=== PATIENT | female | born 1950 | race African-American/Black ===

== ENCOUNTER 2017-07-27 08:33 | Outpatient (CLI) | payer MEDICARE, BC ==
--- NOTE | 2017-07-27 12:00 | CT ---
CT OF THE CHEST AND ABDOMEN WITH IV CONTRAST: Indication: History of leukemia. Comparison: CT chest, abdomen, and pelvis dated 11-30-13. FINDINGS: CHEST: The lungs are clear. No pleural effusion or pneumothorax is evident. No pathologically enlarged lymp h nodes are evident. There are mild vascular calcifications involving the aortic arch. Mildly promin ent lymph nodes within the axillary region are stable, none of which are pathologically enlarged bas ed on size criteria. ABDOMEN: There is a tiny hiatal hernia. There is mild fatty infiltration of the liver. The pancreas, adrenal glands, and kidneys appear within normal limits. 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 The subcentimeter shotty appearing lymph nodes within the aortocaval region are stable. None of whic h are pathologically enlarged by size criteria. There are scattered phleboliths within the gonadal v ein. There is a mild amount of retained stool within the visualized colon. There is a fat containing umbilical hernia. There is scattered degenerative and osteoarthritic change. No definite acute osse ous abnormality is evident. IMPRESSION: 1. No overt changes of recurrent disease. The examination does not appear appreciably changed from t he comparison dated 11-30-13. 2. Nodes within the right axillary regions and aortocaval regions in the abdomen are stable. No path ologically enlarged lymph nodes are evident. 3. Mild fatty liver. 4. Hiatal hernia. 5. Small amount of retained stool within the colon. POS: [facility]
--- NOTE | 2017-07-27 12:05 | CT ---
CT OF SOFT TISSUES OF THE NECK WITH IV CONTRAST: INDICATION: History of leukemia. COMPARISON: CT of the soft tissue of the neck, chest, abdomen, and pelvis dated 07/08/[address] of the soft tis sues of the neck dated 05/28/08 and 11/16/08. FINDINGS: Visualized intracranial contents are unremarkable. The sr vice president space and parapharyngeal space ap pears within normal limits. The parotid and submandibular glands are normal-appearing. The visuali zed aerodigestive tract is normal-appearing. The thyroid gland is normal-appearing. There are multiple subcentimeter lymph nodes seen within the level II and level III positions. A fe w shotty-appearing nodes are seen within level VII bilaterally. None are pathologically enlarged. These are stable to the prior exam. Lung apices are clear. There is scattered degenerative and osteoarthritic change. The visualized paranasal sinuses and mas toid air cells are clear. IMPRESSION: 1. No evidence of recurrent disease. 2. Subcentimeter shotty-appearing lymph nodes seen within the neck bilaterally as well as within th e upper thorax are stable to a comparison in 2010. POS: [facility]
[2017-07-27] MEDS ORDERED: Iopamidol 370 76% 100 ML VIAL ONE (16:35)
== END 2017-07-27 08:34 | disposition home or self-care (01) ==
LOC: CT 08:33
PROVIDERS: ATTEND Internal Medicine Hematology & Oncology
DX: C91.11 Chronic lymphocytic leukemia of B-cell type in remission (principal); K76.0 Fatty (change of) liver, not elsewhere classified; K44.9 Diaphragmatic hernia without obstruction or gangrene
CPT/HCPCS: 70492; 71260; 74160

== ENCOUNTER 2017-12-27 10:31 | Outpatient (CLI) | payer MEDICARE, BC ==
--- NOTE | 2017-12-27 13:56 | ULT ---
BILATERAL LOWER EXTREMITY VENOUS ULTRASOUND WITH DOPPLER: Date: 12/27/17 HISTORY: Right leg pain for a couple of months. COMPARISON: None. TECHNIQUE: Utilizing multihertz transducer, sonographic imaging of the left and right lower extremity venous sys tem performed. FINDINGS: Bilaterally, there is compressibility, presence of flow, and augmentation in the common femoral, femo ral vein, and popliteal vein. There is flow in bilateral greater saphenous veins, profunda veins, and posterior tibial veins. IMPRESSION: No evidence of thrombus in the left or right lower extremity deep venous system. POS: [facility]
== END 2017-12-27 10:32 | disposition home or self-care (01) ==
LOC: ULT 10:31
PROVIDERS: ATTEND Internal Medicine
DX: M79.604 Pain in right leg (principal); M79.603 Pain in arm, unspecified
CPT/HCPCS: 93970

== ENCOUNTER 2018-01-04 16:20 | Outpatient (CLI) | payer MEDICARE, BC | END 2018-01-04 16:21 | disposition home or self-care (01) | LOC: BICRAD 16:20 | PROVIDERS: ATTEND Nurse Practitioner Family | DX: J06.9 Acute upper respiratory infection, unspecified (principal); J45.21 Mild intermittent asthma with (acute) exacerbation; C95.90 Leukemia, unspecified not having achieved remission | CPT/HCPCS: 71046 ==

== ENCOUNTER 2018-03-03 12:01 | Outpatient (CLI) | payer MEDICARE, BC ==
--- NOTE | 2018-03-03 13:12 | ULT ---
DOPPLER VENOUS ULTRASOUND OF THE RIGHT LOWER EXTREMITY: INDICATION: Right lower extremity pain. TECHNIQUE: Corado scale, color Doppler, and vascular duplex with spectral analysis was performed of the deep venou s structures of both lower extremities. The common femoral vein, superficial femoral vein, popliteal vein, posterior tibial vein, proximal greater saphenous, and proximal profunda veins were assessed bi laterally. FINDINGS: Normal compression, flow, and augmentation is seen within the deep venous structures of right lower e xtremity. IMPRESSION: No evidence of deep vein thrombosis within the right lower extremity. POS: [facility]
--- NOTE | 2018-03-03 13:20 | RAD ---
LUMBAR SPINE THREE VIEWS: INDICATIONS: History of spinal arthropathy. FINDINGS: There are marginal osteophytes affecting the lumbar spine at all lumbar intervertebral levels. The v isualized SI joints demonstrate mild degenerative change. No acute fracture or subluxation is eviden t. IMPRESSION: 1. Mild multilevel spondylosis of the lumbar spine. 2. Mild degenerative changes of both sacroiliac joints. POS: [facility]
== END 2018-03-03 12:02 | disposition home or self-care (01) ==
LOC: ULT 12:01
PROVIDERS: ATTEND Internal Medicine Rheumatology
DX: M79.89 Other specified soft tissue disorders (principal); M46.97 Unspecified inflammatory spondylopathy, lumbosacral region; M47.896 Other spondylosis, lumbar region; M53.3 Sacrococcygeal disorders, not elsewhere classified
CPT/HCPCS: 72100

== ENCOUNTER 2019-09-06 08:13 | Outpatient (CLI) | payer MEDICARE, BC ==
--- NOTE | 2019-09-06 09:17 | CT ---
CT OF THE CHEST, ABDOMEN AND PELVIS WITH IV CONTRAST INDICATION: Chronic lymphocytic leukemia COMPARISON: CT of the chest and abdomen dated July 27, 2017 FINDINGS: CHEST: Lungs: The lungs are clear. Pleural space: No effusion. Mediastinum: No pathologically enlarged lymph nodes are seen within the mediastinum. There are mild v ascular calcifications involving the thoracic aorta. Axilla: No pathologically enlarged lymph nodes. ABDOMEN: Lung bases: There is a small hiatal hernia Liver: Mild fatty infiltration Gallbladder: Normal appearing. Pancreas: Normal. Adrenal glands: Normal. Spleen: Normal. Kidneys and ureters: There is a stable small subcentimeter cysts seen within the left mid kidney. No hydronephrosis is demonstrated. Vasculature: There are mild vascular calcifications seen involving the visualized vasculature. Lymph nodes:No pathologically enlarged lymph nodes are seen within the retroperitoneum. No enlarged m esenteric lymph nodes are present. Free fluid in abdomen:No free fluid is evident. PELVIS: Small and large bowel: Normal Appendix:Surgically absent Bladder: Normal. Rectal and perirectal soft tissues:Normal. Reproductive structures: Surgically absent Free fluid in pelvis: No free fluid is evident. Lymphadenopathy pelvis: No lymphadenopathy is evident. Osseous structures: No acute osseous abnormality. No destructive osteolytic or osteoblastic lesion i s identified. There is scattered degenerative and osteoarthritic changes. Soft tissues:Normal. IMPRESSION: 1. No evidence to suggest recurrent disease. 2. Stable small hiatal hernia. 3. Stable mild fatty infiltration of the liver.
[2019-09-06] MEDS ORDERED: Iopamidol 370 76% 100 ML VIAL ONE (13:47)
== END 2019-09-06 08:14 | disposition home or self-care (01) ==
LOC: CT 08:13
PROVIDERS: ATTEND Internal Medicine Hematology & Oncology
DX: C91.11 Chronic lymphocytic leukemia of B-cell type in remission (principal); K44.9 Diaphragmatic hernia without obstruction or gangrene; K76.0 Fatty (change of) liver, not elsewhere classified
CPT/HCPCS: 71260; 74177; 82565; Q9967

== ENCOUNTER 2019-10-16 09:38 | Emergency (ER) | payer MEDICARE, BC ==
--- NOTE | 2019-10-16 10:40 | RAD ---
Exam: Chest one view HISTORY:Fever, leukemia Comparison: 01/17/2017 FINDINGS: Lungs: No masses or consolidation. Cardiac silhouette: Normal size Pulmonary vessels: Normal Pleural Spaces: Clear Pneumothorax: None Osseous abnormalities: None of acuity. IMPRESSION: No focal consolidation.
[2019-10-16 11:09] LABS: Bacteria/HPF None Seen HPF (None Seen); Bilirubin Negative (Negative); Blood, Urine Trace (Negative); Clarity Clear (Clear); Glucose, Urine (Dipstick) Normal (Negative); Leukocyte Negative Leu/uL (Negative); Nitrite Negative (Negative); Protein, Urine (Dipstick) 20 mg/dL (Neg-Trace); RBC/HPF 0-3 HPF (0-3); Squamous Epithelial 0-3 HPF (0-3); Urobilinogen Normal mg/dL (Less than 2); WBC/HPF 0-3 HPF (0-3)
[2019-10-16 11:17] LABS: ALT (SGPT) 18 U/L (8-55); AST (SGOT) 23 U/L (5-34); Albumin 4.3 g/dL (3.4-4.8); Alkaline Phosphatase 94 U/L (40-110); Anion Gap 14 mmol/L (10-20); BUN (Urea Nitrogen) 10 mg/dL (9.8-20.1); Bilirubin, Total 0.3 mg/dL (0.2-1.2); Calc. Creatinine Clearance 0 mL/min (70-130); Calcium 9.1 mg/dL (7.8-10.44); Carbon Dioxide 24 mmol/L (23-31); Chloride 108 mmol/L (98-107); Estimated GFR-MDRD 84; Globulin 3.1 g/dL (2.4-3.5); Glucose 107 mg/dL (80-115); Potassium 3.8 mmol/L (3.5-5.1); Protein, Total 7.4 g/dL (6.0-8.3); Sodium 142 mmol/L (136-145)
[2019-10-16 11:52] LABS: Hemoglobin 12.2 g/dL (12.0-16.0); Lymphocytes 84 % (21-51); MDiff Complete? YES; Mean Corpuscular HGB CONC 32.9 g/dL (32.0-36.0); Mean Corpuscular Hemoglobin 30.7 pg (27.0-31.0); Mean Corpuscular Volume 93.2 fL (78.0-98.0); Mean Platelet Volume 7.9 fL (7.4-10.4); Monocytes 1 % (0-10); Neutrophil 15 % (42-75); Platelet Count 219 thou/uL (130-400); RBC Distribution Width 12.9 % (11.5-14.5); Red Blood Cell (RBC) Count 3.98 mill/uL (4.20-5.40); White Blood Cell (WBC) Count 25.3 thou/uL (4.8-10.8)
== END 2019-10-16 12:30 | disposition home or self-care (01) ==
LOC: ERS 09:38
DX: C95.90 Leukemia, unspecified not having achieved remission (principal); I10 Essential (primary) hypertension; E11.9 Type 2 diabetes mellitus without complications; F41.9 Anxiety disorder, unspecified; Z79.51 Long term (current) use of inhaled steroids; Z79.84 Long term (current) use of oral hypoglycemic drugs; Z79.891 Long term (current) use of opiate analgesic; Z79.899 Other long term (current) drug therapy
CPT/HCPCS: 36415; 71045; 80053; 81003; 81015; 85025; 87804

== ENCOUNTER 2022-03-11 12:21 | Outpatient (CLI) | payer MEDICARE | END 2022-03-11 12:22 | disposition home or self-care (01) | LOC: ULT 12:21 | PROVIDERS: ATTEND Internal Medicine Hematology & Oncology | DX: Z51.11 Encounter for antineoplastic chemotherapy (principal); C50.811 Malignant neoplasm of overlapping sites of right female breast; I08.3 Combined rheumatic disorders of mitral, aortic and tricuspid valves; Z79.899 Other long term (current) drug therapy | CPT/HCPCS: 93306 ==

== ENCOUNTER 2022-05-03 13:33 | Inpatient (IN) | payer MEDICARE ==
[2022-05-03 14:19] LABS: Mean Corpuscular HGB CONC 32.1 g/dL (32.0-36.0); Mean Corpuscular Hemoglobin 31.4 pg (27.0-31.0); Mean Corpuscular Volume 97.5 fL (78.0-98.0); Mean Platelet Volume 8.5 fL (7.4-10.4); Platelet Count 154 thou/uL (130-400); RBC Distribution Width 14.1 % (11.5-14.5); White Blood Cell (WBC) Count 19.7 thou/uL (4.8-10.8)
[2022-05-03 14:33] LABS: ALT (SGPT) 20 U/L (8-55); AST (SGOT) 27 U/L (5-34); Albumin 3.2 g/dL (3.4-4.8); Alkaline Phosphatase 64 U/L (40-110); Anion Gap 12 mmol/L (10-20); BUN (Urea Nitrogen) 18 mg/dL (9.8-20.1); Bilirubin, Total 0.7 mg/dL (0.2-1.2); Calc. Creatinine Clearance 0 mL/min (70-130); Calcium 7.6 mg/dL (7.8-10.44); Carbon Dioxide 26 mmol/L (23-31); Chloride 102 mmol/L (98-107); Estimated GFR 53; Globulin 2.6 g/dL (2.4-3.5); Glucose 191 mg/dL (83-110); Lipase 26 U/L (8-78); Potassium 3.8 mmol/L (3.5-5.1); Protein, Total 5.8 g/dL (5.8-8.1); Sodium 136 mmol/L (136-145)
[2022-05-03 14:41] LABS: Band 9 % (5-11); Lymphocytes 15 % (21-51); MDiff Complete? YES; Neutrophil 75 % (42-75); Platelet Morphology Comment Appears Adequate; Polychromasia SLIGHT = 2-3 cells (100X) (0-2/hpf); Reactive Lymphocytes 1 % (0-10)
[2022-05-03 16:24] LABS: Bacteria/HPF 4+ HPF (None Seen); Bilirubin Negative (Negative); Blood, Urine 2+ (Negative); Clarity Turbid (Clear); Glucose, Urine (Dipstick) Normal (Negative); Ketone, Urine Negative (Negative); Leukocyte 500 Leu/uL (Negative); Nitrite Negative (Negative); Protein, Urine (Dipstick) 70 mg/dL (Neg-Trace); Specific Gravity, Urine 1.017 (1.002-1.036); Squamous Epithelial 0-3 HPF (0-3); Urobilinogen Normal mg/dL (Less than 2); WBC/HPF Greater than 50 HPF (0-3); pH, Urine 6.5 (5.0-9.0)
[2022-05-03] MEDS ORDERED: cefTRIAXone\\ROCEPHIN 1 GM VIAL ONE (17:27)
[2022-05-03] MEDS ORDERED: Dextrose 5% in Water 1,000 ML IV PRN (18:10)
[2022-05-03] MEDS ORDERED: Dextrose 50% Abboject 50 ML SYRINGE SLOW IVP PRN (18:10)
[2022-05-03] MEDS ORDERED: Loperamide HCl 2 MG CAP PO PRN (18:25)
[2022-05-03] MEDS ORDERED: HumaLOG 300 UNITS/3 ML VIAL SC PRN ×2 (18:25)
[2022-05-03] MEDS ORDERED: Ondansetron ODT 4 MG TAB PO PRN (18:25)
[2022-05-03] MEDS ORDERED: Ondansetron PF 4 MG/2 ML Vial IVP PRN (18:25)
[2022-05-03] MEDS ORDERED: Ondansetron ODT 8 MG TAB PO PRN (19:05)
[2022-05-03] MEDS ORDERED: Prochlorperazine Maleate 5 MG TAB PO PRN (19:08)
[2022-05-03 19:42] LABS: Troponin I 0.013 ng/mL (< 0.028)
[2022-05-03 19:47] VITALS: BMI 36.4
[2022-05-03] MEDS ORDERED: Ondansetron HCl/PF 8 MG in Sodium Chloride 0.9% 50 ML IVPB SCH (20:00)
[2022-05-03] MEDS: Sodium Chloride 0.9% 1,000 ML IV SCH (21:09)
[2022-05-03] MEDS ORDERED: traMADol HCl 50 MG TAB PO PRN (21:43)
[2022-05-04] MEDS: Sodium Chloride 0.9% 1,000 ML IV SCH ×2 (06:24→18:14)
[2022-05-04 06:25] LABS: ALT (SGPT) 23 U/L (8-55); AST (SGOT) 33 U/L (5-34); Albumin 2.8 g/dL (3.4-4.8); Alkaline Phosphatase 60 U/L (40-110); Anion Gap 14 mmol/L (10-20); BUN (Urea Nitrogen) 12 mg/dL (9.8-20.1); Bilirubin, Total 0.4 mg/dL (0.2-1.2); Calc. Creatinine Clearance 94 mL/min (70-130); Calcium 7.4 mg/dL (7.8-10.44); Carbon Dioxide 21 mmol/L (23-31); Chloride 107 mmol/L (98-107); Estimated GFR 71; Globulin 3.2 g/dL (2.4-3.5); Glucose 100 mg/dL (83-110); Potassium 4.4 mmol/L (3.5-5.1); Sodium 138 mmol/L (136-145)
[2022-05-04 07:23] LABS: Hemoglobin 9.2 g/dL (12.0-16.0); Mean Corpuscular HGB CONC 31.5 g/dL (32.0-36.0); Mean Corpuscular Volume 98.2 fL (78.0-98.0); Mean Platelet Volume 9.1 fL (7.4-10.4); Platelet Count 157 thou/uL (130-400); RBC Distribution Width 14.2 % (11.5-14.5); Red Blood Cell (RBC) Count 2.98 mill/uL (4.20-5.40); White Blood Cell (WBC) Count 13.9 thou/uL (4.8-10.8)
[2022-05-04 08:58] LABS: Band 25 % (5-11); Lymphocytes 21 % (21-51); MDiff Complete? YES; Metamyelocyte 2 % (0-0); Monocytes 5 % (0-10); Neutrophil 45 % (42-75); Platelet Morphology Comment Appears Adequate; Polychromasia SLIGHT = 2-3 cells (100X) (0-2/hpf); Reactive Lymphocytes 2 % (0-10)
[2022-05-04] MEDS ORDERED: Rosuvastatin 20 MG TAB PO SCH (09:00)
[2022-05-04] MEDS: Ferrous Sulfate 325 MG TAB PO SCH (10:24)
[2022-05-04] MEDS: Acetaminophen 325 MG TAB PO PRN ×2 (12:08→22:07)
[2022-05-04] MEDS: IBRUTINIB 420 MG PO SCH (12:08)
[2022-05-04] MEDS: cefTRIAXone\\ROCEPHIN 1 GM in Sodium Chloride 0.9% 100 ML IVPB SCH (18:13)
[2022-05-04] MEDS: Rosuvastatin 20 MG TAB PO SCH (22:06)
[2022-05-05] MEDS: Sodium Chloride 0.9% 1,000 ML IV SCH ×3 (02:27→16:14)
[2022-05-05] MEDS: Ferrous Sulfate 325 MG TAB PO SCH (08:13)
[2022-05-05] MEDS: IBRUTINIB 420 MG PO SCH (08:16)
[2022-05-05 09:14] LABS: Hemoglobin 9.5 g/dL (12.0-16.0); Mean Corpuscular HGB CONC 32.1 g/dL (32.0-36.0); Mean Corpuscular Hemoglobin 31.4 pg (27.0-31.0); Mean Corpuscular Volume 97.6 fL (78.0-98.0); Mean Platelet Volume 9.2 fL (7.4-10.4); Platelet Count 153 thou/uL (130-400); RBC Distribution Width 13.9 % (11.5-14.5); Red Blood Cell (RBC) Count 3.03 mill/uL (4.20-5.40); White Blood Cell (WBC) Count 7.4 thou/uL (4.8-10.8)
[2022-05-05 09:20] LABS: ALT (SGPT) 23 U/L (8-55); AST (SGOT) 25 U/L (5-34); Albumin 3.2 g/dL (3.4-4.8); Alkaline Phosphatase 63 U/L (40-110); Anion Gap 12 mmol/L (10-20); BUN (Urea Nitrogen) 9 mg/dL (9.8-20.1); Bilirubin, Total 0.4 mg/dL (0.2-1.2); Calc. Creatinine Clearance 96 mL/min (70-130); Calcium 7.7 mg/dL (7.8-10.44); Carbon Dioxide 24 mmol/L (23-31); Chloride 108 mmol/L (98-107); Estimated GFR 72; Globulin 2.7 g/dL (2.4-3.5); Glucose 127 mg/dL (83-110); Magnesium 1.2 mg/dL (1.6-2.6); Potassium 3.5 mmol/L (3.5-5.1); Protein, Total 5.9 g/dL (5.8-8.1); Sodium 140 mmol/L (136-145)
[2022-05-05 10:24] LABS: MDiff Complete? YES; Platelet Morphology Comment Appears Adequate; Polychromasia SLIGHT = 2-3 cells (100X) (0-2/hpf)
[2022-05-05 10:39] LABS: Band 15 % (5-11); Eosinophils 1 % (0-10); Lymphocytes 47 % (21-51); Monocytes 1 % (0-10); Neutrophil 36 % (42-75)
[2022-05-05] MEDS ORDERED: Magnesium Sulfate In Water 4 GM in Premix Bag 1 BAG IVPB SCH (12:30)
[2022-05-05] MEDS: Acetaminophen 325 MG TAB PO PRN ×2 (14:53→20:32)
[2022-05-05] MEDS: cefTRIAXone\\ROCEPHIN 1 GM in Sodium Chloride 0.9% 100 ML IVPB SCH (16:14)
[2022-05-05] MEDS: Rosuvastatin 20 MG TAB PO SCH (20:32)
[2022-05-06] MEDS: Loperamide HCl 2 MG CAP PO PRN (04:19)
[2022-05-06 06:28] LABS: Hemoglobin 9.4 g/dL (12.0-16.0); Mean Corpuscular HGB CONC 32.1 g/dL (32.0-36.0); Mean Corpuscular Volume 96.4 fL (78.0-98.0); Mean Platelet Volume 8.7 fL (7.4-10.4); Platelet Count 150 thou/uL (130-400); Red Blood Cell (RBC) Count 3.04 mill/uL (4.20-5.40)
[2022-05-06 06:29] LABS: ALT (SGPT) 22 U/L (8-55); AST (SGOT) 25 U/L (5-34); Albumin 3.3 g/dL (3.4-4.8); Alkaline Phosphatase 62 U/L (40-110); Anion Gap 15 mmol/L (10-20); BUN (Urea Nitrogen) 8 mg/dL (9.8-20.1); Band 6 % (5-11); Bilirubin, Total 0.3 mg/dL (0.2-1.2); Calc. Creatinine Clearance 97 mL/min (70-130); Calcium 8.1 mg/dL (7.8-10.44); Carbon Dioxide 23 mmol/L (23-31); Chloride 107 mmol/L (98-107); Estimated GFR 73; Globulin 2.7 g/dL (2.4-3.5); Glucose 96 mg/dL (83-110); Hypochromia SLIGHT = 6-15 cells (100X) (0-5/hpf); Lymphocytes 52 % (21-51); MDiff Complete? YES; Metamyelocyte 1 % (0-0); Monocytes 4 % (0-10); Neutrophil 36 % (42-75); Platelet Morphology Comment Appears Adequate; Potassium 3.5 mmol/L (3.5-5.1); Reactive Lymphocytes 1 % (0-10); Sodium 141 mmol/L (136-145)
[2022-05-06 08:46] LABS: Magnesium 1.8 mg/dL (1.6-2.6)
[2022-05-06] MEDS: Ferrous Sulfate 325 MG TAB PO SCH (09:25)
[2022-05-06] MEDS: Magnesium Oxide 400 MG TAB PO SCH (09:26)
[2022-05-06] MEDS: IBRUTINIB 420 MG PO SCH (09:29)
[2022-05-06] MEDS ORDERED: Losartan 25 MG TAB PO SCH (13:30)
[2022-05-06] MEDS ORDERED: Cefdinir 300 MG CAP PO SCH (13:45)
[2022-05-06] MEDS: Sodium Chloride 0.9% 1,000 ML IV SCH (14:35)
[2022-05-06] MEDS: Carvedilol 6.25 MG TAB PO SCH (20:44)
[2022-05-06] MEDS: Cefdinir 300 MG CAP PO SCH (20:44)
[2022-05-06] MEDS: Rosuvastatin 20 MG TAB PO SCH (20:45)
[2022-05-06] MEDS: Acetaminophen 325 MG TAB PO PRN (20:48)
[2022-05-07] MEDS: Loperamide HCl 2 MG CAP PO PRN ×3 (01:31→13:50)
[2022-05-07] MEDS: Sodium Chloride 0.9% 1,000 ML IV SCH (05:19)
[2022-05-07 07:06] LABS: Hemoglobin 9.5 g/dL (12.0-16.0); Mean Corpuscular Hemoglobin 30.8 pg (27.0-31.0); Mean Corpuscular Volume 96.3 fL (78.0-98.0); Mean Platelet Volume 9.3 fL (7.4-10.4); Platelet Count 166 thou/uL (130-400); RBC Distribution Width 14.1 % (11.5-14.5); Red Blood Cell (RBC) Count 3.09 mill/uL (4.20-5.40); White Blood Cell (WBC) Count 10.7 thou/uL (4.8-10.8)
[2022-05-07 07:18] LABS: ALT (SGPT) 22 U/L (8-55); AST (SGOT) 22 U/L (5-34); Albumin 3.4 g/dL (3.4-4.8); Alkaline Phosphatase 69 U/L (40-110); Anion Gap 17 mmol/L (10-20); BUN (Urea Nitrogen) 6 mg/dL (9.8-20.1); Bilirubin, Total 0.3 mg/dL (0.2-1.2); Calc. Creatinine Clearance 92 mL/min (70-130); Calcium 8.3 mg/dL (7.8-10.44); Carbon Dioxide 18 mmol/L (23-31); Chloride 109 mmol/L (98-107); Estimated GFR 69; Globulin 2.7 g/dL (2.4-3.5); Glucose 99 mg/dL (83-110); Magnesium 1.6 mg/dL (1.6-2.6); Potassium 3.6 mmol/L (3.5-5.1); Protein, Total 6.1 g/dL (5.8-8.1); Sodium 140 mmol/L (136-145)
[2022-05-07 07:48] LABS: Band 28 % (5-11); Dohle Bodies SLIGHT; Eosinophils 1 % (0-10); Lymphocytes 41 % (21-51); MDiff Complete? YES; Metamyelocyte 1 % (0-0); Monocytes 10 % (0-10); Neutrophil 19 % (42-75); Nucleated RBC 1 % (0); Platelet Morphology Comment Appears Adequate; Polychromasia SLIGHT = 2-3 cells (100X) (0-2/hpf)
[2022-05-07] MEDS ORDERED: Losartan 25 MG TAB PO SCH (09:00)
[2022-05-07] MEDS: Ferrous Sulfate 325 MG TAB PO SCH (09:31)
[2022-05-07] MEDS: Carvedilol 6.25 MG TAB PO SCH (09:31)
[2022-05-07] MEDS: Cefdinir 300 MG CAP PO SCH (09:32)
[2022-05-07] MEDS: Magnesium Oxide 400 MG TAB PO SCH (09:33)
[2022-05-07] MEDS: IBRUTINIB 420 MG PO SCH (09:35)
[2022-05-07 13:08] LABS: Campy jejuni + coli by PCR Negative (Negative); STEC Shiga Toxin 1+2 Negative (Negative); Salmonella spp. by PCR Negative (Negative); Shigella spp + EIEC by PCR Negative (Negative)
[2022-05-07 15:39] VITALS: BP 124/82; TEMP 98.5
== END 2022-05-07 15:51 | disposition home or self-care (01) | DRG 872 ==
LOC: ERS 13:33 → T4-A 17:16
PROVIDERS: ADMIT Hospitalist; ATTEND Family Medicine
DX: A41.51 Sepsis due to Escherichia coli [E. coli] (principal); N17.9 Acute kidney failure, unspecified; C95.90 Leukemia, unspecified not having achieved remission; C91.10 Chronic lymphocytic leukemia of B-cell type not having achieved remission; K52.1 Toxic gastroenteritis and colitis; N12 Tubulo-interstitial nephritis, not specified as acute or chronic; I10 Essential (primary) hypertension; D64.9 Anemia, unspecified; C50.911 Malignant neoplasm of unspecified site of right female breast; E11.9 Type 2 diabetes mellitus without complications; E86.0 Dehydration; E83.42 Hypomagnesemia; T45.1X5A Adverse effect of antineoplastic and immunosuppressive drugs, initial encounter; Z20.822 Contact with and (suspected) exposure to COVID-19; F41.9 Anxiety disorder, unspecified; J45.909 Unspecified asthma, uncomplicated; Z90.710 Acquired absence of both cervix and uterus; Z90.49 Acquired absence of other specified parts of digestive tract; Z88.8 Allergy status to other drugs, medicaments and biological substances; Z88.2 Allergy status to sulfonamides; Z79.899 Other long term (current) drug therapy; Z79.84 Long term (current) use of oral hypoglycemic drugs
CPT/HCPCS: 36415; 36416; 70450; 71045; 80053; 81003; 81015; 83690; 83735; 84146; 84484; 85025; 87077; 87086; 87186; 87324; 87449; 87505; 87798; 93005; 93880; 96361; 96365; J0696; J2405; J3475; J3490; J7050; U0003; U0005

== ENCOUNTER 2022-06-01 15:21 | Emergency (ER) | payer MEDICARE ==
[2022-06-01 16:12] LABS: Mean Corpuscular HGB CONC 32.6 g/dL (32.0-36.0); Mean Corpuscular Hemoglobin 32.3 pg (27.0-31.0); Mean Platelet Volume 9.6 fL (7.4-10.4); Platelet Count 142 thou/uL (130-400); RBC Distribution Width 15.9 % (11.5-14.5); Red Blood Cell (RBC) Count 3.08 mill/uL (4.20-5.40); White Blood Cell (WBC) Count 20.1 thou/uL (4.8-10.8)
[2022-06-01 16:21] LABS: Actual Bicarbonate (HCO3v) 20 mEq/L (22-28); Base Excess -3.6 mEq/L (-2.0 to +3.0); Chloride (VBG) 104 mmol/L (98-106); Hemoglobin (Hb) 11.1 g/dL (11.7-16.1); Potassium (VBG) 4.41 mmol/L (3.70-5.30); Sodium 132.7 mmol/L (133-146); pH (venous) 7.43 (7.32-7.43)
[2022-06-01 16:21] LABS: ALT (SGPT) 12 U/L (8-55); AST (SGOT) 16 U/L (5-34); Albumin 3.7 g/dL (3.4-4.8); Alkaline Phosphatase 93 U/L (40-110); Anion Gap 15 mmol/L (10-20); BUN (Urea Nitrogen) 15 mg/dL (9.8-20.1); Bilirubin, Total 0.4 mg/dL (0.2-1.2); CK (CPK) 130 U/L (29-168); Calc. Creatinine Clearance 0 mL/min (70-130); Calcium 8.6 mg/dL (7.8-10.44); Carbon Dioxide 23 mmol/L (23-31); Chloride 103 mmol/L (98-107); Estimated GFR 30; Globulin 2.6 g/dL (2.4-3.5); Glucose 154 mg/dL (83-110); Potassium 3.9 mmol/L (3.5-5.1); Protein, Total 6.3 g/dL (5.8-8.1); Sodium 137 mmol/L (136-145)
[2022-06-01 16:30] LABS: Anisocytosis SLIGHT = 6-15 cells (100X) (0-5/hpf); Band 10 % (5-11); Lymphocytes 27 % (21-51); MDiff Complete? YES; Metamyelocyte 1 % (0-0); Monocytes 5 % (0-10); Myelocyte 2 % (0-0); Neutrophil 55 % (42-75); Ovalocytes SLIGHT = 2-5 cells (100X) (0-1/hpf); Platelet Morphology Comment Appears Adequate; Polychromasia SLIGHT = 2-3 cells (100X) (0-2/hpf)
[2022-06-01 16:43] LABS: Magnesium 1.4 mg/dL (1.6-2.6)
[2022-06-01 17:06] LABS: Bacteria/HPF 4+ HPF (None Seen); Bilirubin Negative (Negative); Blood, Urine 2+ (Negative); Clarity Extra Turbid (Clear); Glucose, Urine (Dipstick) Normal (Negative); Ketone, Urine Negative (Negative); Leukocyte 500 Leu/uL (Negative); Nitrite Negative (Negative); Protein, Urine (Dipstick) 300 mg/dL (Neg-Trace); Specific Gravity, Urine 1.016 (1.002-1.036); Squamous Epithelial 0-3 HPF (0-3); Urobilinogen Normal mg/dL (Less than 2); WBC/HPF Greater than 50 HPF (0-3)
[2022-06-01] MEDS ORDERED: cefTRIAXone\\ROCEPHIN 1 GM VIAL ONE (17:36)
== END 2022-06-01 19:19 | disposition home or self-care (01) ==
LOC: ERS 15:21
DX: E86.0 Dehydration (principal); R19.7 Diarrhea, unspecified; I10 Essential (primary) hypertension; E11.9 Type 2 diabetes mellitus without complications; J45.909 Unspecified asthma, uncomplicated; Z85.6 Personal history of leukemia; Z79.899 Other long term (current) drug therapy; Z79.84 Long term (current) use of oral hypoglycemic drugs
CPT/HCPCS: 71045; 80053; 81003; 81015; 82550; 82805; 83605; 83735; 83880; 84484; 85025; 87077; 87086; 87186; 93005; 96361; 96365; J0696

== ENCOUNTER 2022-07-29 11:17 | Outpatient (CLI) | payer MEDICARE ==
[2022-07-29 12:20] LABS: #Eosinphils 0.1 10x3/uL (0.0-0.5); #Monocytes 0.6 10x3/uL (0.0-1.1); #Neutrophils 4.2 10x3/uL (1.5-8.4); %Basophils 0.3 % (0.0-2.0); %Eosinophils 1.6 % (0.0-6.0); %Lymphocytes 41.6 % (18.0-47.0); %Monocytes 7.3 % (0.0-10.0); %Neutrophils 49.1 % (40.0-75.0); Hemoglobin 10.1 g/dL (12.0-15.5); Mean Corpuscular HGB CONC 32.7 g/dL (32.0-36.0); Mean Corpuscular Hemoglobin 32.7 pg (27.0-33.0); Mean Platelet Volume 9.6 fl (7.4-10.4); Platelet Count 258 10x3/uL (150-450); RBC Distribution Width 13.3 % (11.5-14.5); Red Blood Cell (RBC) Count 3.09 10x6/uL (3.90-5.03); White Blood Cell (WBC) Count 8.6 10x3/uL (3.5-10.5)
[2022-07-29 12:34] LABS: Anion Gap 15 mmol/L (10-20); BUN (Urea Nitrogen) 14 mg/dL (9.8-20.1); Calc. Creatinine Clearance 0 mL/min (70-130); Calcium 8.7 mg/dL (7.8-10.44); Carbon Dioxide 25 mmol/L (23-31); Chloride 107 mmol/L (98-107); Estimated GFR 48; Glucose 142 mg/dL (83-110); Potassium 3.9 mmol/L (3.5-5.1); Sodium 143 mmol/L (136-145)
== END 2022-07-29 11:18 | disposition home or self-care (01) ==
LOC: LABBT 11:17
PROVIDERS: ATTEND Surgery
DX: Z01.812 Encounter for preprocedural laboratory examination (principal); C50.911 Malignant neoplasm of unspecified site of right female breast; Z20.822 Contact with and (suspected) exposure to COVID-19
CPT/HCPCS: 80048; 85025; 87811

== ENCOUNTER 2022-08-03 06:35 | Day surgery (SDC) | payer MEDICARE ==
[2022-07-30 10:52] VITALS: BMI 35.5
[2022-08-03] MEDS ORDERED: CEFAZOLIN 2 GM VIAL ONE (10:21)
[2022-08-03] MEDS ORDERED: Sodium Chloride 0.9% 100 ML ONE (10:22)
[2022-08-03] MEDS ORDERED: Lidocaine 1% MPF 2 ML VIAL ONE (10:22)
[2022-08-03] MEDS ORDERED: Fentanyl 100 MCG/2 ML VIAL ONE ×2 (11:05→13:19)
[2022-08-03] MEDS ORDERED: fentaNYL Citrate/PF 100 MCG/2 ML SYRINGE ONE (11:06)
[2022-08-03] MEDS ORDERED: Methylene Blue 50 MG/10 ML AMPUL ONE (11:11)
[2022-08-03] MEDS ORDERED: Lidocaine 1% (PF) 30 ML VIAL ONE (11:11)
[2022-08-03] MEDS ORDERED: EPINEPHrine 1 MG/ML AMP ONE (11:11)
[2022-08-03] MEDS ORDERED: Bupivacaine 0.25% HCL 30 ML VIAL ONE (11:11)
[2022-08-03] MEDS ORDERED: Ondansetron PF 4 MG/2 ML Vial ONE (12:23)
[2022-08-03] MEDS ORDERED: Lidocaine 1% PF 5 ML VIAL ONE (12:23)
[2022-08-03] MEDS ORDERED: PROPOFOL 200 MG/20 ML VIAL ONE ×2 (12:23)
[2022-08-03] MEDS ORDERED: Dexamethasone 20 MG/5 ML VIAL ONE (12:23)
[2022-08-03] MEDS ORDERED: HYDROcodone/Acetaminophen 5/325 mg Tablet ONE (14:35)
== END 2022-08-03 16:08 | disposition home or self-care (01) ==
LOC: SDC 06:35
PROVIDERS: ATTEND Surgery
PROC: 0HBT0ZZ Excision of Right Breast, Open Approach (ICD-10-PCS; principal; 2022-08-03)
PROC: 07B50ZX Excision of Right Axillary Lymphatic, Open Approach, Diagnostic (ICD-10-PCS; 2022-08-03)
DX: C50.911 Malignant neoplasm of unspecified site of right female breast (principal); N60.31 Fibrosclerosis of right breast; C91.90 Lymphoid leukemia, unspecified not having achieved remission; J45.909 Unspecified asthma, uncomplicated; E78.5 Hyperlipidemia, unspecified; E11.40 Type 2 diabetes mellitus with diabetic neuropathy, unspecified; G89.4 Chronic pain syndrome; I73.9 Peripheral vascular disease, unspecified; K21.9 Gastro-esophageal reflux disease without esophagitis; M06.9 Rheumatoid arthritis, unspecified; Z17.0 Estrogen receptor positive status [ER+]; Z79.84 Long term (current) use of oral hypoglycemic drugs; Z79.899 Other long term (current) drug therapy; Z88.1 Allergy status to other antibiotic agents; Z88.2 Allergy status to sulfonamides; Z91.041 Radiographic dye allergy status
CPT/HCPCS: 19281; 19301; 38525; 76098; 78195; A9541; Q9968; 88307; J0171; J0690; J1100; J1642; J2001; J2405; J2704; J3010; J3490; S0020

== ENCOUNTER 2022-08-24 12:33 | Outpatient (CLI) | payer MEDICARE | END 2022-08-24 12:34 | disposition home or self-care (01) | LOC: ULT 12:33 | PROVIDERS: ATTEND Internal Medicine Hematology & Oncology | DX: Z51.11 Encounter for antineoplastic chemotherapy (principal); C50.919 Malignant neoplasm of unspecified site of unspecified female breast; I08.1 Rheumatic disorders of both mitral and tricuspid valves | CPT/HCPCS: 93306 ==

== ENCOUNTER 2022-11-09 15:22 | Outpatient (CLI) | payer MEDICARE | END 2022-11-09 15:23 | disposition home or self-care (01) | LOC: BICULT 15:22 | PROVIDERS: ATTEND Nurse Practitioner Family | DX: R31.9 Hematuria, unspecified (principal) | CPT/HCPCS: 76770 ==

== ENCOUNTER 2022-12-18 12:38 | Outpatient (CLI) | payer MEDICARE | END 2022-12-18 12:39 | disposition home or self-care (01) | LOC: ULT 12:38 | PROVIDERS: ATTEND Internal Medicine Hematology & Oncology | DX: Z51.11 Encounter for antineoplastic chemotherapy (principal); C50.811 Malignant neoplasm of overlapping sites of right female breast; I34.0 Nonrheumatic mitral (valve) insufficiency; I70.90 Unspecified atherosclerosis; Z79.899 Other long term (current) drug therapy | CPT/HCPCS: 93306 ==

== ENCOUNTER 2023-02-20 06:20 | Emergency (ER) | payer MEDICARE ==
[2023-02-20 07:21] LABS: #Lymphocytes 1.6 thou/uL (1.20-3.40); #Monocytes 0.5 thou/uL (0.11-0.59); #Neutrophils 6.9 thou/uL (1.40-6.50); %Basophils 0.3 % (0.0-1.0); %Eosinophils 0.5 % (0.0-10.0); %Lymphocytes 17.6 % (21.0-51.0); %Monocytes 5.6 % (0.0-10.0); Mean Corpuscular HGB CONC 32.4 g/dL (32.0-36.0); Mean Corpuscular Hemoglobin 32.1 pg (27.0-31.0); Mean Corpuscular Volume 99.1 fl (78.0-98.0); Mean Platelet Volume 8.4 fL (7.4-10.4); Platelet Count 191 10x3/uL (130-400); RBC Distribution Width 13.3 % (11.5-14.5); Red Blood Cell (RBC) Count 3.73 mill/uL (4.20-5.40)
[2023-02-20 07:43] LABS: ALT (SGPT) 16 U/L (8-55); AST (SGOT) 21 U/L (5-34); Albumin 3.6 g/dL (3.4-4.8); Alkaline Phosphatase 56 U/L (40-110); Anion Gap 13 mmol/L (10-20); BUN (Urea Nitrogen) 17 mg/dL (9.8-20.1); Bilirubin, Total 0.3 mg/dL (0.2-1.2); Calc. Creatinine Clearance 0 mL/min (70-130); Calcium 8.3 mg/dL (7.8-10.44); Carbon Dioxide 22 mmol/L (23-31); Chloride 109 mmol/L (98-107); Estimated GFR 48; Globulin 2.7 g/dL (2.4-3.5); Glucose 136 mg/dL (83-110); Lipase 18 U/L (8-78); Potassium 3.9 mmol/L (3.5-5.1); Protein, Total 6.3 g/dL (5.8-8.1); Sodium 140 mmol/L (136-145)
[2023-02-20] MEDS ORDERED: Ondansetron PF 4 MG/2 ML Vial ONE (07:47)
[2023-02-20] MEDS ORDERED: Acetaminophen 500 MG TAB ONE (08:20)
[2023-02-20 08:49] LABS: Bilirubin Negative (Negative); Blood, Urine 1+ (Negative); Clarity Clear (Clear); Glucose, Urine (Dipstick) Normal (Negative); Ketone, Urine Negative (Negative); Leukocyte 25 Leu/uL (Negative); Nitrite Negative (Negative); Protein, Urine (Dipstick) Negative (Neg-Trace); RBC/HPF 0-3 HPF (0-3); Specific Gravity, Urine 1.012 (1.002-1.036); Squamous Epithelial None Seen HPF (0-3); Urobilinogen Normal mg/dL (Less than 2); WBC/HPF 0-3 HPF (0-3)
[2023-02-20 08:50] LABS: Bacteria/HPF 1+ HPF (None Seen)
== END 2023-02-20 09:56 | disposition home or self-care (01) ==
LOC: ERS 06:20
DX: E86.0 Dehydration (principal); R19.7 Diarrhea, unspecified; R11.10 Vomiting, unspecified; I10 Essential (primary) hypertension
CPT/HCPCS: 36415; 80053; 81003; 81015; 83690; 85025; 93005; 96361; 96374; J2405

== ENCOUNTER 2023-04-21 13:48 | Emergency (ER) | payer MEDICARE | END 2023-04-21 16:19 | disposition home or self-care (01) | LOC: ERS 13:48 | DX: R22.42 Localized swelling, mass and lump, left lower limb (principal); I10 Essential (primary) hypertension; J45.909 Unspecified asthma, uncomplicated; E11.9 Type 2 diabetes mellitus without complications; Z79.84 Long term (current) use of oral hypoglycemic drugs; Z79.899 Other long term (current) drug therapy ==

== ENCOUNTER 2023-06-11 08:36 | Outpatient (CLI) | payer MEDICARE | END 2023-06-11 08:37 | disposition home or self-care (01) | LOC: BICMAMMO 08:36 | PROVIDERS: ATTEND Internal Medicine Hematology & Oncology | DX: Z08 Encounter for follow-up examination after completed treatment for malignant neoplasm (principal); Z85.3 Personal history of malignant neoplasm of breast | CPT/HCPCS: 77066; G0279 ==

== ENCOUNTER 2023-09-01 10:42 | Outpatient (CLI) | payer MEDICARE | END 2023-09-01 10:43 | disposition home or self-care (01) | LOC: BICRAD 10:42 | PROVIDERS: ATTEND Nurse Practitioner Family | DX: R05.3 Chronic cough (principal) | CPT/HCPCS: 71046; 80053; 85025; 87077; 87086 ==